=== PATIENT | male | born 1980 | race Caucasian/White ===

== ENCOUNTER 2017-01-13 16:50 | Emergency (ER) | payer OTHER ==
--- NOTE | ~2017-01-13 | CR230 ---
[facility]. [facility] A Service of [facility] & [facility] RADIOLOGY TEXT RESULTS PATIENT: JUANPABLO MURDOCK LOCATION: SED : [birth year] UNIT #: [id number] AGE: [address]: Vero Boyd SEX: M ORDER DR: [id number] [address] [address] [id number] E MR#: [id number] Acc #: [id number] NAME: JUANPABLO MURDOCK : 1980 SEX: M STUDY DATE/TIME: 01/13/2017 16:54 UNIT: SED ROOM: STUDY DESCRIPTION: CR Shoulder Min 2 View Rt Attending Physician: Vero Boyd Pa-C Ordering Physician: Physician Non-Staff Primary Care Physician: Primary Care Physician No MEDICAL IMAGING REPORT This report is preliminary unless electronic signature is present. EXAM Right shoulder, 01/13/2017 HISTORY 36-year-old male with right shoulder pain status post fall today. COMPARISON Right scapula same date. FINDINGS 3 views of the right shoulder demonstrate no acute fracture or dislocation. Acromioclavicular joint is unremarkable. Scapula and clavicle appear intact. IMPRESSION Unremarkable right shoulder. Dictated by... He Vergara M.D. THIS IS AN ELECTRONICALLY VERIFIED REPORT He Vergara M.D. at 01/14/2017 4:44 PM [facility]/thomas TD: 01/14/2017 09:05 JOB #: [id number] MEDICAL IMAGING REPORT Page 1 of 1
--- NOTE | ~2017-01-13 | CR94 ---
[facility] A Service of [facility] / [facility] RADIOLOGY TEXT RESULTS PATIENT: JUANPABLO MURDOCK LOCATION: SED : [birth year] UNIT #: [id number] AGE: [address]: Vero Boyd SEX: M ORDER DR: [id number] [address] [address] [id number] E MR#: [id number] Acc #: [id number] NAME: JUANPABLO MURDOCK : 1980 SEX: M STUDY DATE/TIME: 01/13/2017 16:54 UNIT: SED ROOM: STUDY DESCRIPTION: CR Elbow Min 3 Views Rt Attending Physician: Vero Boyd Pa-C Ordering Physician: Physician Non-Staff Primary Care Physician: Primary Care Physician No MEDICAL IMAGING REPORT This report is preliminary unless electronic signature is present. EXAM 3 views right elbow. DATE: 01/13/2017 16:54 HISTORY Right elbow pain after falling in the yard today. COMPARISON: None FINDINGS There is a spur projecting from the posterior margin of the olecranon with mild overlying soft tissue swelling. No joint effusion is seen. No fracture. No dislocation. No unexpected retained radiopaque foreign body is seen in the soft tissues. IMPRESSION 1. No acute fracture or dislocation of the right elbow. 2. Posterior olecranon spurring with mild overlying soft tissue swelling. Dictated by... Tere Maria M.D. THIS IS AN ELECTRONICALLY VERIFIED REPORT Tree Maria M.D. at 01/15/2017 8:33 AM [facility]/yasmin TD: 01/14/2017 09:18 JOB #: [id number] [facility] A Service of [facility] / [facility] RADIOLOGY TEXT RESULTS PATIENT: JUNAPABLO MURDOCK LOCATION: SED : [birth year] UNIT #: [id number] AGE: [address]: Vero Boyd SEX: M ORDER DR: MEDICAL IMAGING REPORT Page 1 of 1
--- NOTE | ~2017-01-13 | CR221 ---
[facility]. [facility] A Service of [facility] & [facility] RADIOLOGY TEXT RESULTS PATIENT: JUANPABLO MURDOCK LOCATION: SED : [birth year] UNIT #: [id number] AGE: [address]: Vero Boyd SEX: M ORDER DR: [id number] [address] [address] [id number] E MR#: [id number] Acc #: [id number] NAME: JUANPABLO MURDOCK : 1980 SEX: M STUDY DATE/TIME: 01/13/2017 16:54 UNIT: SED ROOM: STUDY DESCRIPTION: CR Scapula Comp Rt Attending Physician: Vero Boyd Pa-C Ordering Physician: Physician Non-Staff Primary Care Physician: No Primary Care Physician MEDICAL IMAGING REPORT This report is preliminary unless electronic signature is present. PLAN Right scapula 01/13/2017. HISTORY Right shoulder and scapular pain status post fall today. COMPARISON Right shoulder same date. FINDINGS 3 views of the right scapula demonstrate no acute fracture. Glenohumeral joint normally located. Acromioclavicular joint is normal. Visualized right-sided ribs are intact. IMPRESSION Unremarkable right scapula. Dictated by... He Vergara M.D. THIS IS AN ELECTRONICALLY VERIFIED REPORT He Vergara M.D. at 01/14/2017 4:44 PM JKB/travis TD: 01/14/2017 09:09 JOB #: [id number] MEDICAL IMAGING REPORT Page 1 of 1
[~2017-01-13 16:50] MED LIST: ALBUTEROL17 GM INH; AMOXICILLIN875 MG PO; BENZONATATE PO; FLEXERIL10 MG PO; FLONASE 0.05% N16 G1; IBUPROFEN PO; IBUPROFEN800 MG PO; NO MEDICATIONS; PREDNISONE PO; SUDAFED PO; TESSALON PERLE100 M1 PO; VOLTAREN50 MG PO; VOLTAREN75 MG PO; ZOFRANODT PO
== END 2017-01-13 18:34 | disposition home or self-care (01) ==
LOC: SED 16:50
DX: S40.011A Contusion of right shoulder, initial encounter (principal); F17.200 Nicotine dependence, unspecified, uncomplicated; W19.XXXA Unspecified fall, initial encounter; Y92.009 Unspecified place in unspecified non-institutional (private) residence as the place of occurrence of the external cause; Z88.8 Allergy status to other drugs, medicaments and biological substances
CPT/HCPCS: 73010; 73030; 73080; 90715; 99284